=== PATIENT | female | born 1995 | race Caucasian/White ===

== ENCOUNTER 2024-08-06 11:41 | Emergency (ER) | payer SELFPAY ==
[~2024-08-06] VITALS: Ht 160 cm; Wt 133.8 kg
[2024-08-06] MEDS ORDERED: PENICILLIN VK500 MG PO (12:18)
[2024-08-06] MEDS ORDERED: CLEOCIN HCL300 MG PO (12:36)
== END 2024-08-06 12:32 | disposition home or self-care (01) ==
LOC: ED 11:41
DX: K08.89 Other specified disorders of teeth and supporting structures (principal); H92.02 Otalgia, left ear; R51.9 Headache, unspecified